=== PATIENT | female | born 1955 | race Caucasian/White ===

== ENCOUNTER → 2016-08-13 | Outpatient (CLI) | payer BC ==
[~2016-08-13] MED LIST: ISOVUE-370 76% 100ML VIAL (Q9967) As Ordered ONE
--- NOTE | 2016-08-13 18:29 | REP ---
CT CHEST WITH CONTRAST: HISTORY: Endometrial carcinoma. COMPARISON: 01/08/2016. The prior exam is from an outside institution. CONTRAST: 100 mL Isovue-[id number] There is no mediastinal or hilar adenopathy. There are no pleural or pericardial effusions. The imaged upper abdomen is unchanged from 07/15/[address] showing no acute abnormality. Evaluation of the lung storey show no significant changes from prior exam. There are no abnormal nodules, masses or opacities. There are a few incidental calcified granulomas. IMPRESSION: No evidence of acute disease. Findings as described above. Signed by Tyron Curiel DO 08/13/2016 07:11 P
== END ==
LOC: M RAD 17:04
PROVIDERS: ATTEND Radiology Radiation Oncology
DX: C54.1 Malignant neoplasm of endometrium (principal)
CPT/HCPCS: 71260; Q9967

== ENCOUNTER 2016-08-17 15:13 | Outpatient (RCR) | payer BC | END 2016-08-29 | LOC: M ONCR 15:13 | PROVIDERS: ATTEND Radiology Radiation Oncology | DX: C77.2 Secondary and unspecified malignant neoplasm of intra-abdominal lymph nodes (principal); C54.1 Malignant neoplasm of endometrium ==

== ENCOUNTER → 2016-08-17 | Outpatient (CLI) | payer BC | LOC: M RAD 08:13 | PROVIDERS: ATTEND Radiology Radiation Oncology | DX: C54.1 Malignant neoplasm of endometrium (principal) ==